=== PATIENT | male | born 1960 | race Caucasian/White ===

== ENCOUNTER 2017-02-14 20:29 | Emergency (ER) | payer BC, OTHER ==
[~2017-02-14] VITALS: Ht 165.1 cm; Wt 68.2 kg
[2017-02-14 20:58] VITALS: BP 137/75
--- NOTE | 2017-02-14 21:03 | NUR ---
[facility] DRAWING LABS
--- NOTE | 2017-02-14 21:05 | NUR ---
PT TAKEN TO XRAY FROM THE LOBBY
--- NOTE | 2017-02-14 21:09 | NUR ---
PT RETURN FROM XRAY TO THE LOBBY
[2017-02-14 21:22] LABS: BASOPHILS # (AUTO) 0.5 K/uL (0.00-0.22); BASOPHILS % (AUTO) 4.2 % (0.0-2.0); EOSINOPHILS # (AUTO) 0.2 K/uL (0-0.4); EOSINOPHILS % (AUTO) 1.6 % (0.0-4.0); HEMATOCRIT 49.6 % (36-52); HEMOGLOBIN 16.6 g/dL (12.0-18.0); LYMPHOCYTES # (AUTO) 2.5 K/uL (2.0-11.5); MEAN CORPUSCULAR HEMOGLOBIN 31 pg (27-31); MEAN CORPUSCULAR HGB CONC 33 g/dL (33-37); MEAN CORPUSCULAR VOLUME 92 fL (80-94); MONOCYTES # (AUTO) 0.7 K/uL (0.8-1.0); MONOCYTES % (AUTO) 6.2 % (1.7-9.3); PLATELET COUNT (AUTO) 186 K/uL (140-450); RED BLOOD CELL COUNT(AUTO) 5.42 MIL/uL (4.20-6.10); RED CELL DISTRIBUTION WIDTH 12.8 % (11.6-13.7); WHITE BLOOD COUNT (AUTO) 10.9 K/uL (4.8-10.8)
[2017-02-14 21:37] LABS: ANION GAP 11.5 (8-16); CALCIUM 8.5 mg/dL (8.5-10.1); CARBON DIOXIDE 27.4 mmol/L (21-32); CREATININE 1.1 mg/dL (0.7-1.3); POTASSIUM 3.9 mmol/L (3.5-5.1)
[2017-02-14 21:43] LABS: INR 1.1 (0.8-1.2); PARTIAL THROMBOPLASTIN TIME 26.5 secs (22-35.6); PROTHROMBIN TIME 10.7 secs (10.8-13.4); TOTAL BILIRUBIN 0.3 mg/dL (0.0-1.0); TOTAL PROTEIN, SERUM 7.9 g/dL (6.4-8.2)
--- NOTE | 2017-02-15 00:08 | NUR ---
56Y M BIB FAMILY C/O CP NON RADIATING X 1 DAY. PT DENIES ANY N/V/D, SOB AT THE MOMENT. 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 PT STATES HIS WORK IS STRESSFUL AND WAS THE CAUSE OF IT LAST TIME.
--- NOTE | 2017-02-15 00:50 | NUR ---
Dr. Kinney evaluating patient at bedside.
--- NOTE | 2017-02-15 00:58 | NUR ---
Patient discharged with v/s stable. Written and verbal after care instructions given and explained. Patient alert, oriented and verbalized understanding of instructions. Ambulatory with steady gait. All questions addressed prior to discharge. ID band removed. Patient advised to follow up with PMD. Rx of NORCO 5/325MG given. Patient educated on indication of medication including possible reaction and side effects. Opportunity to ask questions provided and answered.
[2017-02-15 00:59] VITALS: BP 122/71
== END 2017-02-15 00:58 | disposition home or self-care (01) ==
LOC: MED 20:29
DX: R07.89 Other chest pain (principal); Z88.6 Allergy status to analgesic agent; F17.200 Nicotine dependence, unspecified, uncomplicated
CPT/HCPCS: 36415; 71020; 80053; 81002; 83690; 83880; 84484; 85025; 85610; 85730; 93005; 99285